=== PATIENT | female | born 1995 | race Caucasian/White ===

== ENCOUNTER 2018-02-27 16:55 | Outpatient (CLI) | payer MEDICAID, SELFPAY ==
[2018-02-27 17:12] VITALS: BMI 46.3
[2018-02-27 17:59] LABS: Hematocrit 37.3 % (37-47); Hemoglobin 12.7 g/dl (12.0-15.0); Mean Corpuscular Hgb 30.1 pg (27.0-32.0); Mean Corpuscular Volume 88.4 fL (81-99); Mean Platelet Vol. 11.7 fl (6.2-12.0); Platelet Count 193 K/mm3 (150-450); RBC Distribution Width CV 13.8 % (11.6-14.6); RBC Distribution Width SD 42.8 fl (35.1-43.9); Red Blood Count 4.22 M/mm3 (4.2-5.4); White Blood Count 14.3 K/mm3 (4.4-11.0)
[2018-02-27 18:00] LABS: Scan Indicated on CBC? Y/N NO
[2018-02-27 18:10] LABS: Prothrombin Time (Protime)PT. 12.7 SECONDS (11.7-14.9)
[2018-02-27 18:11] LABS: Partial Thromboplast Time 25.7 Seconds (24.1-36.2)
[2018-02-27 18:13] LABS: AST(SGOT) 16 U/L (15-37); Alanine Aminotransfer ALT/SGPT 31 U/L (13-56); Creatinine, Serum 0.69 mg/dL (0.55-1.02); EST Glomerular Filtration Rate 112 mL/min (>60); Est Glom Filt Rate - Afr Amer 136 mL/min (>60); Estimated Creatinine Clearance 110.43 ml/min; Protein, Urine (Random) 13.5 mg/dL (<11.9); Protein:Creat Ratio 300 mg/g CRE (0-200); Uric Acid 4.7 mg/dL (2.6-6.0)
--- NOTE | 2018-02-27 21:03 | OB.TRI.NOTE ---
- Problem List (1) Transient elevated blood pressure Status: Acute History of Present Illness Date of Service: 02/27/18 Was patient seen by the physician?: Yes Reason For Visit: ELEVATED BP Date of Service: 02/27/18 Final GEORGINA: 03/19/18 Final GEORGINA Source: US <20 weeks Gestational age: 37 Weeks and 1 Days History of Present Illness: Patient presented to office today for visit with Di Herrera CNM. Patient was noted to have initial elevated blood pressure of 152/90 in office. Subsequent blood pressures were all normotensive but decision was mutually made with collaborating physician Jaguar Luciano MD to evaluate via prolonged monitoring at hospital. Pre-eclampsia labs, urine P/C ratio and 24 hour urine to be drawn on this admission for screening. If in normal range, anticipate discharge to home. Allergies No Known Allergies Allergy (Verified 02/27/18 17:13) - Pertinent Past Medical History Pertinent Past Medical History: See [facility] Record Physical Exam Vitals: BPs mostly in 140/70s per nursing report, HR = 90-100s LFTs WNL, uric acid = 4.7, CBC = WNL Urine P/C ratio = 300 borderline high normal. Will order 24 hours urine for patient to collect and turn in the morning of Sunday AM visit General: Alert, Oriented x3, No apparent distress HEENT: Atraumatic, Normocephalic. Negative for: Thyromegaly, Lymphadenopathy Cardiovascular: Regular rate, Regular Rhythm Lungs: Clear to auscultation Abdomen: Soft, Non Tender, Gravid, Appropriate for Gestational Age Extremities:: No edema Neurological: Deep Tendon Reflexes 2+/4 and Symmetrical, Neuro grossly intact LABORATORY SECRETARY: Normal external genitalia. Negative for: Vulvar lesions Estimated gestational size: Appropriate for gestational size - deferred Presentation: Cephalic NST - FHR Rate Baby A Baseline: 150 Variability:: Moderate Accelerations:: 15 x 15 Decelerations:: None NST Reactive:: Yes, Appropriate for gestational age FHR Category:: Category I Uterine Activity:: None noted on tocometer Impression/Plan 22 y/o @ 37 weeks, Transient Episode of Elevate Blood Pressure P: 1) Patient remains asymptomatic, denies pre-eclampsia s/s at this time. As blood pressures remained normotensive and blood lab work WNL will discharge patient to home at this time. 2) RTC Kevin AM for BP check 3) 24 hour urine to be initiated tomorrow and finished by Sunday AM visit 4) Pre-eclampsia warning s/s reviewed. Yamilex HAMMOND
== END 2018-02-27 19:00 | disposition home or self-care (01) ==
LOC: WPOUT 17:07 → WP 17:07
PROVIDERS: Advanced Practice Midwife; Visit Provider Advanced Practice Midwife
DX: O26.893 Other specified pregnancy related conditions, third trimester (principal); R03.0 Elevated blood-pressure reading, without diagnosis of hypertension; Z3A.37 37 weeks gestation of pregnancy
CPT/HCPCS: 36415; 59025; 59050; 82565; 82570; 84156; 84450; 84460; 84550; 85027; 85610; 85730; 99218; G0378

== ENCOUNTER 2018-03-01 15:40 | Inpatient (IN) | payer MEDICAID, SELFPAY ==
[2018-03-01 16:15] VITALS: BMI 45.8
[2018-03-01] MEDS: Lactated Ringers 1,000 ML 50 ML IV (16:30)
--- NOTE | 2018-03-01 16:42 | PCM.HP.OB ---
History Date of Admission: 03/01/18 Final GEORGINA: 03/19/18 Final GEORGINA Source: US <20 weeks Gestational age: 37 Weeks and 3 Days History of this : This is a 22 year-old, G 1, P 0, at 37 weeks gestational age was seen in office for BP check- BPs found to be elevated [id number]. pt denies visual changes but states she does have some pain behind her eyes. Denies Epigastric or RUQ pain. pt Reports decreased FM. Pt had PRE E work up earlier this week- urine protein/creat ratio 300mg. Based on this information and BPs today I recommended to patient IOL for Preeclampsia without Severe features. Allergies nickel Adverse Reaction (Verified 03/01/18 16:15) Rash Home Medications: Home Medications Lamotrigine [Lamictal] 200 mg PO DAILY 02/27/18 Quetiapine Fumarate [Seroquel] 300 mg PO DAILY 02/27/18 Smoking Status: Current some day smoker Alcohol: None Number of Fetus(es): 1 Heart Tracin moderate variability with + accels, no decels. TOCO Analysis: irregular History Past Pregnancies: Past Pregnancies Delivery Date Name GA/Weeks Outcome Route Weight Infant Gender Labor Length Anesthesia Delivery Location Provider FOB Labs: Blood type O+, HEP B neg, HIV non reactive, GBS Positive, RPR NR, GCT 131. Expected Delivery Method: Spontaneous Vaginal Review of Systems Constitutional: Denies: Anorexia Eyes: Denies: Blurred vision HEENT: Denies: Difficulty Hearing, Difficulty Swallowing Cardiovascular: Denies: Chest Pain Gastrointestinal: Denies: Abdominal Pain Physical Exam General: Alert, Oriented x3 HEENT: Atraumatic Abdomen: Soft, Non Tender, Gravid Neurological: Cranial nerves II-XII grossly intact PERSONNEL ASSOCIATE: Normal external genitalia Estimated gestational size: Appropriate for gestational size Presentation: Cephalic Cervix Dilation (cm): 1 Station: -3 Effacement (%): 70 Assessment/Plan All Active Problems Transient elevated blood pressure (Acute) This is a 22 year-old, G 1, P0, at 37 weeks gestational age Elevated BPs and slightly elevated Urine spot prot/creat raito- PREECLAMPSIA without severe features 1) admit 2) monitor fhr/toco 3) apple/pitocin 4) GBS prophylaxis when in labor
--- NOTE | 2018-03-01 16:52 | HP.PCM_ITS ---
History Date of Admission: 03/01/18 Final GEORGINA: 03/19/18 Final GEORGINA Source: US <20 weeks Gestational age: 37 Weeks and 3 Days History of this : This is a 22 year-old, G 1, P 0, at 37 weeks gestational age was seen in office for BP check- BPs found to be elevated [id number]. pt denies visual changes but states she does have some pain behind her eyes. Denies Epigastric or RUQ pain. pt Reports decreased FM. Pt had PRE E work up earlier this week- urine protein/creat ratio 300mg. Based on this information and BPs today I recommended to patient IOL for Preeclampsia without Severe features. Allergies nickel Adverse Reaction (Verified 03/01/18 16:15) Rash Home Medications: Home Medications Lamotrigine [Lamictal] 200 mg PO DAILY 02/27/18 Quetiapine Fumarate [Seroquel] 300 mg PO DAILY 02/27/18 Smoking Status: Current some day smoker Alcohol: None Number of Fetus(es): 1 Heart Tracin moderate variability with + accels, no decels. TOCO Analysis: irregular History Past Pregnancies: Past Pregnancies Delivery Date Name GA/Weeks Outcome Route Weight Infant Gender Labor Length Anesthesia Delivery Location Provider FOB Labs: Blood type O+, HEP B neg, HIV non reactive, GBS Positive, RPR NR, GCT 131. Expected Delivery Method: Spontaneous Vaginal Review of Systems Constitutional: Denies: Anorexia Eyes: Denies: Blurred vision HEENT: Denies: Difficulty Hearing, Difficulty Swallowing Cardiovascular: Denies: Chest Pain Gastrointestinal: Denies: Abdominal Pain Physical Exam General: Alert, Oriented x3 HEENT: Atraumatic Abdomen: Soft, Non Tender, Gravid Neurological: Cranial nerves II-XII grossly intact HEALTHCARE CONSULTANT: Normal external genitalia Estimated gestational size: Appropriate for gestational size Presentation: Cephalic Cervix Dilation (cm): 1 Station: -3 Effacement (%): 70 Assessment/Plan All Active Problems Transient elevated blood pressure (Acute) This is a 22 year-old, G 1, P0, at 37 weeks gestational age Elevated BPs and slightly elevated Urine spot prot/creat raito- PREECLAMPSIA without severe features 1) admit 2) monitor fhr/toco 3) apple/pitocin 4) GBS prophylaxis when in labor
[2018-03-01] MEDS: 0.9% Normal Saline 100 ML IV.SOLN. 250 ML INTRA-UTER (17:00)
[2018-03-01 17:03] LABS: Hematocrit 39.2 % (37-47); Hemoglobin 13.5 g/dl (12.0-15.0); Mean Corp Hgb Conc 34.4 g/gl (32-36); Mean Corpuscular Hgb 29.8 pg (27.0-32.0); Mean Corpuscular Volume 86.5 fL (81-99); Platelet Count 201 K/mm3 (150-450); RBC Distribution Width CV 13.6 % (11.6-14.6); RBC Distribution Width SD 41.6 fl (35.1-43.9); Red Blood Count 4.53 M/mm3 (4.2-5.4); White Blood Count 12.8 K/mm3 (4.4-11.0)
[2018-03-01 17:05] LABS: Scan Indicated on CBC? Y/N NO
[2018-03-01] MEDS: Oxytocin 30 units/NS 500 ml 30 UNITS/500 ML IV.SOLN IV (17:10)
[2018-03-01 17:12] LABS: Prothrombin Time (Protime)PT. 12.8 SECONDS (11.7-14.9)
[2018-03-01 17:28] LABS: ALB/GLOB Ratio 0.7 RATIO (0.9-2.4); AST(SGOT) 18 U/L (15-37); Alanine Aminotransfer ALT/SGPT 25 U/L (13-56); Albumin, Serum 2.7 g/dL (3.2-5.0); Alkaline Phosphatase 143 U/L (45-117); Anion Gap 8 (5-15); BUN 9 mg/dL (7-18); BUN/Creat Ratio 14.2 RATIO (10-20); Calcium,Total 9.2 mg/dL (8.5-10.1); Chloride 109 mmol/L (98-107); Creatinine, Serum 0.63 mg/dL (0.55-1.02); EST Glomerular Filtration Rate 124 mL/min (>60); Est Glom Filt Rate - Afr Amer 151 mL/min (>60); Estimated Creatinine Clearance 120.95 ml/min; Globulin 4.1 g/dL (2.2-4.2); Glucose 84 mg/dL (74-106); Protein, Total 6.8 g/dL (6.4-8.2); Sodium Level 138 mmol/L (136-145)
[2018-03-01 17:37] LABS: Creat.Clear Total Volume 1775 mL; Creatinine Clearance 191 ml/min (100-200); Creatinine Serum Creat 0.6 mg/dL (0.6-1.0); Creatinine Urine 97.7 mg/dL (NO RANGE EST.); EST Glomerular Filtration Rate 125 mL/min (>60); Est Glom Filt Rate - Afr Amer 152 mL/min (>60)
[2018-03-01] MEDS: Acetaminophen 325 MG Tablet PO (19:45)
[2018-03-01 20:28] LABS: 24 Hour Urine Protein 445.5 mg/24HR (<150 MG/24HR); 24HR. UA Prot. Total Volume 1775 mL; Urine Protein (24 Hour) 25.1 mg/dL (<11.9)
[2018-03-01] MEDS: QUEtiapine 100 MG Tablet 300 MG PO (22:39)
[2018-03-02] VITALS (12 sets, daily range): BP systolic 111–132; BP diastolic 54–77; PULSE 85–114; RESP 16–20; TEMP 36.3–37; O2SAT 18–99
[2018-03-02] MEDS: Lactated Ringers 1,000 ML 50 ML IV ×4 (00:40→13:35)
[2018-03-02] MEDS: Acetaminophen 325 MG Tablet PO (04:32)
--- NOTE | 2018-03-02 07:33 | PCM.PN.BLA ---
Progress Note pt seen at bedside, doing well. Pitocin at 16mu, AROM performed clear fluid- IUPC and IFM placed. Pt has a very narrow Pelvis, prominent pubic arch. 4-5cm/80/-3. will continue pitocin. Epidural for pain.
--- NOTE | 2018-03-02 07:36 | PN_ITS ---
Progress Note pt seen at bedside, doing well. Pitocin at 16mu, AROM performed clear fluid- IUPC and IFM placed. Pt has a very narrow Pelvis, prominent pubic arch. 4-5cm/80 /-3. will continue pitocin. Epidural for pain.
[2018-03-02] MEDS: fentaNYL-bupivacaine (epidural) 100 ML BAG EPIDURAL (08:10)
[2018-03-02] MEDS: lamoTRIgine 100 MG Tablet 200 MG PO (10:49)
--- NOTE | 2018-03-02 12:24 | PCM.PN.BLA ---
Progress Note pt seen at bedside, comfortable with epidural in place. VE: /-80/-3 with caput noted, large amt of clear amniotic fluid expelled on exam. pitocin was turned off earlier due to minimal variability and late decelerations- will attempt to restart pitocin. FHR currently category 1. Will recheck patient in approx 2 hours
[2018-03-02] MEDS: Sodium Citrate/Citric Acid 30 ML UDC PO (15:45)
[2018-03-02] MEDS: Oxytocin 30 units/NS 500 ml 30 UNITS/500 ML IV.SOLN 167 UNITS IV (16:36)
--- NOTE | 2018-03-02 17:19 | OP.PCM_ITS ---
Delivery Classification: ARGELIA Final GEORGINA: 03/19/18 Gestational age: 37 Weeks and 4 Days Indications: Failed induction, Arrest of dilation at 5cm, intolerance to pitocin. Indications for : Failure to Progress, Nonreassuring Status, - - failed induction Description of Procedure: Surgeon: Dr. Idania Rey Safekeeping Clerk: JONH Guajardo Preoperative diagnosis: Preeclampsia without severe features, Failed Induction, arrest of dilation at 5cm, intolerance to pitocin - Postoperative diagnosis: same Findings: LIve female infant born 1635 with apgars 8/9, body cord x 1. weight [id number] Anesthesia: Epidural Complications: None Estimated blood loss: 800 Implantable devices: None Drains: apple Procedure performed: Primary Low Transverse section Indications: Pt was induced for Preeclampsia - had cervical apple (came out at approx 9:30pm 03/01/18) and was on pitocin for approximately 24hr, progressed to 5cm for which she remained for 0050 hrs. pitocin had to be turned off multiple times due to category 2 tracing with Late decelerations and minimal variability. pt and were counseled on primary cs including risks of bleeding, injury to pelvic structures, infection . Operative note: After informed consent was obtained the patient was taken the operating room. She was then placed in the supine position. She was prepped and draped in the normal sterile fashion. Anesthesia was found to be adequate. At this time a Pfannenstiel skin incision was made with a knife was carried down to the underlying layer of the fascia. The fascial incision was then extended laterally using curved Guerrero scissor. Tensions was then turned to the superior aspect of the fascial edge was grasped with 2 straight Josiah clamps tented up and the rectus muscle dissected off sharply using curved Guerrero scissor. Attention was then turned to the inferior aspect where again Josiah clamps were placed in the rectus muscles were tented up and the fascia was dissected off sharply using the curved Guerrero scissor. Rectus muscles were then in the midline bluntly and peritoneum was entered bluntly. Gentle opposing traction was placed. At this time the vesicouterine peritoneum was identified. bladder flap created with meteznbaum scissor and taken down digitally. Scalpel was used to make a uterine incision in a low transverse fashion. The uterus was then entered bluntly gentle opposing traction was placed to extend this incision. fluid was clear. Infant's head was brought to the uterine incision was delivered atraumatically. delayed cord calping performed x approx 60sec- then it was clamped and cut was handed to the waiting nursery team. The Placenta was removed from the uterus. The uterus remained in the cavity. Carlos O retractor used for visualization. The uterus was cleared of all clots and debris using a lap. At this time the uterine incision was reapproximated using #1 Vicryl in a running locked fashion. Hemostasis was appreciated. Posterior cul-de-sac was then cleared of all clots and debris. Gutters were cleared of all clots and debris. Uterine incision was reevaluated and noted to be of excellent hemostasis. At this time the peritoneum was grasped with Kellys reapproximated using #2 Vicryl suture in a running fashion. Muscles then reapproximated using #2 Vicryl in a interrupted mattress suture fashion. Fascia was then reapproximated using #1 PDS in a running fashion. Subcu layer was reapproximated with #2 0 plain gut suture in an interrupted fashion. Subcu layer was closed using 4-0 vicryl on a Satya needle in a subcu fashion. Dry sterile dressing was applied. Instrument lap needle count correct ?2. Anticipated normal postoperative course Amniotic Membrane Rupture Type: Artificial Amniotic Fluid Description: Clear Placenta Disposition: [facility] Drain: Apple to straight drain Cord Entanglement: - - body cord, losse x 1 Nuchal Cord Compression: With compression Cord Vessel Description: 3 Vessels Esitmated Blood Loss (ml): 800 Gender: Female (1 minute): 8 (5 minute): 9 Delayed cord clamping: Yes Pre-op Antibiotic Given: - - ancef 3g and Zithromax 500mg iv Pt instructed on risks of surgery: Bleeding, Anesthesia Risks, Infection, Injury to surrounding structure(s) including bowel and bladder Complications: None - Admit VTE Documentation VTE Present on Admission: Yes VTE Mechan Device Prophylaxis: SCD's VTE Pharm Prophylaxis ordered?: Yes
[2018-03-02] MEDS: Acetaminophen 500 MG Tablet 1000 MG PO (21:09)
[2018-03-03] VITALS (12 sets, daily range): BP systolic 110–137; BP diastolic 55–81; PULSE 74–102; RESP 16–18; TEMP 36.1–36.7; O2SAT 95–98
--- NOTE | 2018-03-03 00:09 | NURSING ---
report given to Tamiko
[2018-03-03] MEDS: Lactated Ringers 1,000 ML 100 ML IV (01:26)
[2018-03-03] MEDS: 0.9% Saline Lock 10 ML Syringe IV (03:35)
[2018-03-03] MEDS: Ketorolac 30 MG/ML Syringe IV ×3 (03:35→10:39)
[2018-03-03] MEDS: QUEtiapine 100 MG Tablet 200 MG PO ×2 (03:35→21:27)
[2018-03-03] MEDS: Enoxaparin 40 MG/0.4 ML Syringe SC (06:05)
--- NOTE | 2018-03-03 09:00 | PN.OBGYN_ITS ---
Patient Problems: Active and Suspected Problems (Last Updated 03/01/18 @ 16:43 by Idania Mackenzie MD) Bipolar 2 disorder (Acute) Subjective: pt seen at bedside,dong well. pt reports good pain control. lochia mild. breast feeding. passing flatus. denies CP, SOB, dizziness. - Physical Exam General: Alert, Oriented x3 Abdomen: Soft, Non Tender, Non-Distended, Passing Flatus, - - fundus firm. dressing dry and intact Extremities: No Calf Tenderness Vital Signs Temp Pulse Resp BP Pulse Ox 97 F L 80 16 110/60 96 03/03/18 03:15 03/03/18 06:34 03/03/18 06:34 03/03/18 03:15 03/03/18 06:34 Oxygen Flow Rate (L/min) 2 Oxygen Delivery Method Nasal Cannula Weight: 121.2 kg Body Mass Index (BMI) 45.8 Intake and Output for Last 24 Hours 03/01/18 03/02/18 03/03/18 23:59 23:59 23:59 Intake Total 9766 / 9766 830 / 830 Output Total 1600 / 1600 400 / 400 Balance 8166 / 8166 430 / 430 Medical Necessity - Tobacco Use Smoking Status: Current some day smoker Assessment/Plan All Active Problems (Last Updated 03/01/18 @ 16:43 by Idania Rey MD) Transient elevated blood pressure (Acute) Bipolar 2 disorder (Acute) POD#1, doing well 1) preeclampsia- BP stable 2) pain mgmt 3) dc apple 4) ambulation
[2018-03-03] MEDS: lamoTRIgine 100 MG Tablet 200 MG PO (10:40)
[2018-03-03 15:37] LABS: Hematocrit 29.2 % (37-47); Hemoglobin 9.6 g/dl (12.0-15.0); Mean Corp Hgb Conc 32.9 g/gl (32-36); Mean Corpuscular Hgb 29.1 pg (27.0-32.0); Mean Corpuscular Volume 88.5 fL (81-99); Mean Platelet Vol. 11.4 fl (6.2-12.0); Platelet Count 145 K/mm3 (150-450); RBC Distribution Width CV 13.9 % (11.6-14.6); RBC Distribution Width SD 44.9 fl (35.1-43.9); White Blood Count 11.9 K/mm3 (4.4-11.0)
[2018-03-03 15:46] LABS: Scan Indicated on CBC? Y/N NO
[2018-03-03] MEDS: oxyCODONE 5 MG Tablet PO ×2 (16:37→21:26)
[2018-03-03] MEDS: Ibuprofen 600 MG Tablet PO ×2 (16:38→23:58)
--- NOTE | 2018-03-03 19:03 | DCINST_ITS ---
Discharge Diet: No Restrictions Discharge Activity: Return to Normal Activity, May Not Drive - for 2 weeks, May not drive while taking narcotic pain medications., May Shower, May Take a Tub Bath - in 7 days. May resume sexual activity in: 4-6 weeks Lifting Restrictions: 20 pounds Additional Activity Instructions:: Nothing in the vagina for 4-6 weeks. You may return to work/school in 6 weeks. Call your doctor if your incision/area has: Continuous Slow Oozing, Sudden Increased Bleeding, Increased Pain/ Swelling, Increased Redness, Foul Smelling Discharge Call your doctor if you observe: Fever of 101 or Higher, Using more than one pad per hour - for 2 hours Suture Line Care: Avoid Pulling/Pushing, Avoid Pinching/Bending Cleanse incision/area with: Keep Dressing Clean & Dry Additional Instructions: If you experience any of the following, contact your healthcare provider. * Bleeding that soaks a pad every hour for 2 hours * Fever 100.4 or higher * Unrelieved incision or abdominal pain * Swelling, redness, discharge or bleeding from your incision or episiotomy site * Your incision begins to separate * Problems urinating (including inability to urinate or burning while urinating) . * Visual changes * Severe headache * Flu-like symptoms * Pain or redness in one of both of your breasts * Pain, warmth, tenderness or swelling in your legs, especially the calf area * Frequent nausea and vomiting * Symptoms of depression or anxiety If you experience any of the following, call 911 or go to the nearest Emergency Room. * Chest pain * Problems breathing * Seizure activity * Partial or complete paralysis of a body part, slurred speech, weakness or drooping of the face, or a sudden inability to walk or hold your balance Allergies/Adverse Reactions: Allergies nickel Adverse Reaction (Verified 03/01/18 16:15) Rash Medications to take at Discharge Lamotrigine [Lamictal] 200 mg PO DAILY 02/27/18 Quetiapine Fumarate [Seroquel] 300 mg PO DAILY 02/27/18 Ibuprofen [Motrin] 800 mg PO Q8H PRN PRN #30 tab 03/03/18 Lamotrigine [Lamictal] 200 mg PO DAILY tablet 03/03/18 Oxycodone HCl/Acetaminophen [Percocet 5/325] 1 tablet PO Q6H PRN PRN 7 Days #28 tablet 03/03/18 Quetiapine Fumarate [Seroquel] 200 mg PO QHS tablet 03/03/18 Senna/Docusate Sodium [Senokot-S] 1 tab PO DAILY PRN #30 tab 03/03/18 SimETHICONE [Mylicon] 80 mg PO PCHS PRN #30 tab 03/03/18 The following prescriptions were given: Oxycodone HCl/Acetaminophen [Percocet 5/325] 1 tablet PO Q6H PRN PRN 7 Days #28 tablet PRN Reason: Pain Ibuprofen [Motrin] 800 mg PO Q8H PRN PRN #30 tab PRN Reason: Pain Senna/Docusate Sodium [Senokot-S] 1 tab PO DAILY PRN #30 tab PRN Reason: Constipation SimETHICONE [Mylicon] 80 mg PO PCHS PRN #30 tab PRN Reason: Indigestion/stomach pain Follow-Up: Call to make an appointment with your doctor for an incision check in 1-2 weeks. You will also need a 6 week post- follow up appointment. Please Follow Up With: Idania Rey MD - Call to make an appointment for an incision check in 1-2 [phone] When: You will need a post- check in 6 weeks. Primary Care Physician: Care Physician,No Primary [Primary Care Provider] -
[2018-03-03] MEDS: Senna/Docusate Sodium 1 Tablet PO (21:26)
[2018-03-04] VITALS: BP 137/67; PULSE 120; RESP 16; TEMP 36.7; O2SAT 98
[2018-03-04] MEDS: Enoxaparin 40 MG/0.4 ML Syringe SC (06:26)
[2018-03-04] MEDS: Ibuprofen 600 MG Tablet PO ×2 (06:26→22:48)
[2018-03-04] MEDS: oxyCODONE 5 MG Tablet PO ×2 (06:27→16:26)
[2018-03-04 08:30] VITALS: BP 140/81; PULSE 105; RESP 18; TEMP 36.4; O2SAT 97
--- NOTE | 2018-03-04 09:12 | PN.OBGYN_ITS ---
Patient Problems: Active and Suspected Problems (Last Updated 03/01/18 @ 16:43 by Idania Mackenzie MD) Preeclampsia (Acute) Bipolar 2 disorder (Acute) Subjective: Doing well per patient and nursing staff. Ambulating and taking PO without difficulty. Voiding and passing flatus. Denies headache, visual changes, chest pain, shortness of breath, leg pain, increased vaginal bleeding or clots. Pain controlled by Oxycodone. Pumping and bottle feeding. - Physical Exam General: Alert, Oriented x3, Cooperative HEENT: Atraumatic, PERRLA, Normocephalic Lungs: Clear to auscultation, Normal air movement, No rhonchi, No wheeze Cardiovascular: Regular rate, Regular Rhythm, No murmurs Abdomen: Bowel Sounds Present, Soft, - - Incision covered with dressing. Clean, dry and intact. Bowel signs present Extremities: No edema Musculoskeletal: No Tenderness to Palpation of Joints or Extremities Neurological: Cranial nerves II-XII grossly intact, Deep Tendon Reflexes 2+/4 and Symmetrical, - - Casey's negative, no clonus Psych/Mental Status: Normal Affect, Appropriate Vital Signs Temp Pulse Resp BP Pulse Ox 98.1 F 120 H 16 137/67 H 98 03/04/18 00:00 03/04/18 00:00 03/04/18 00:00 03/04/18 00:00 03/04/18 00:00 Oxygen Flow Rate (L/min) 2 Oxygen Delivery Method Room Air Weight: 267 lb 3.204 oz Body Mass Index (BMI) 45.8 Intake and Output for Last 24 Hours 03/02/18 03/03/18 03/04/18 23:59 23:59 23:59 Intake Total 9766 / 9766 830 / 830 Output Total 1600 / 1600 1700 / 1700 Balance 8166 / 8166 -870 / -870 Laboratory Tests Past 24 Hrs 03/03/18 15:05 WBC 11.9 H RBC 3.30 L Hgb 9.6 L Hct 29.2 L MCV 88.5 MCH 29.1 MCHC 32.9 RDW 13.9 RDW Differential 44.9 H Plt Count 145 L MPV 11.4 Medical Necessity - Tobacco Use Smoking Status: Current some day smoker Assessment/Plan All Active Problems (Last Updated 03/01/18 @ 16:43 by Idania Rey MD) Preeclampsia (Acute) Transient elevated blood pressure (Acute) Bipolar 2 disorder (Acute) A: POD #2 Primary Section Pre-Eclampsia P: 1) Planning D/C home tomorrow 2) BP elevated today 140/81, will continue to monitor. 3) Lovenox for prophylaxis.
[2018-03-04] MEDS: Senna/Docusate Sodium 1 Tablet PO (10:35)
[2018-03-04] MEDS: lamoTRIgine 100 MG Tablet 200 MG PO (10:35)
[2018-03-04 14:10] VITALS: BP 158/92; PULSE 110; RESP 18; TEMP 36.8; O2SAT 110
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
[2018-03-04] MEDS: Labetalol 100 MG Tablet PO (16:27)
[2018-03-04 20:08] VITALS: BP 131/62; PULSE 110; RESP 18; TEMP 36.7; O2SAT 97
[2018-03-04] MEDS: QUEtiapine 100 MG Tablet 200 MG PO (22:49)
[2018-03-05 04:00] VITALS: BP 133/77; PULSE 94; RESP 18; TEMP 36.6
[2018-03-05 05:00] VITALS: BP 127/68
[2018-03-05] MEDS: Labetalol 100 MG Tablet PO (05:09)
[2018-03-05] MEDS: Enoxaparin 40 MG/0.4 ML Syringe SC (06:28)
[2018-03-05 08:45] VITALS: BP 152/87; PULSE 103; RESP 20; TEMP 36.2; O2SAT 99
--- NOTE | 2018-03-05 08:50 | PN.OBGYN_ITS ---
Patient Problems: Active and Suspected Problems (Last Updated 03/01/18 @ 16:43 by Idania Mackenzie MD) Preeclampsia (Acute) Bipolar 2 disorder (Acute) Subjective: Doing well per patient and nursing staff. Ambulating and taking PO without difficulty. Voiding and passing flatus. Pain controlled by oxycodone. Denies headache, visual changes, chest pain, shortness of breath, increased pain, increased vaginal bleeding or clots. Having difficulty with baby latching, pumping and bottle feeding breastmilk and formula. D/C home today. - Physical Exam General: Alert, Oriented x3, Cooperative HEENT: Atraumatic Lungs: Clear to auscultation, Normal air movement, No rhonchi, No wheeze Cardiovascular: Regular rate, Regular Rhythm, No murmurs Abdomen: Bowel Sounds Present, Soft, Non Tender, Passing Flatus, Obese, - - Dressing clean, dry, and intact. Extremities: - - +1 BLE. Musculoskeletal: No Tenderness to Palpation of Joints or Extremities Neurological: Deep Tendon Reflexes 2+/4 and Symmetrical, - - Clonus negative Psych/Mental Status: Normal Affect, Appropriate Vital Signs Temp Pulse Resp BP Pulse Ox 97.9 F 94 18 127/68 H 97 03/05/18 04:00 03/05/18 04:00 03/05/18 04:00 03/05/18 05:00 03/04/18 20:08 Oxygen Flow Rate (L/min) 2 Oxygen Delivery Method Room Air Weight: 267 lb 3.204 oz Body Mass Index (BMI) 45.8 Intake and Output for Last 24 Hours 03/03/18 03/04/18 03/05/18 23:59 23:59 23:59 Intake Total 830 / 830 Output Total 1700 / 1700 Balance -870 / -870 Medical Necessity - Tobacco Use Smoking Status: Current some day smoker Assessment/Plan All Active Problems (Last Updated 03/01/18 @ 16:43 by Idania Rey MD) Preeclampsia (Acute) Transient elevated blood pressure (Acute) Bipolar 2 disorder (Acute) A: POD #2 Section Pre-Eclampsia P: 1) Discharge and instructions given. Follow up in 3 days for BP check, 6 weeks for visit. 2) Reviewed Pre-e warning signs. Will continue Labetalol 100mg PO BID. Co- management of care with and consulted for home going medications. 3) D/C Lovenox 4) Will remove dressing at follow up visit.
--- NOTE | 2018-03-05 08:52 | DS.PCM_ITS ---
Discharge Date and Diagnosis - Problem List Patient Problems: Active and Suspected Problems (Last Updated 03/01/18 @ 16:43 by Idania Mackenzie MD) Preeclampsia (Acute) Bipolar 2 disorder (Acute) Date of Admission: 03/01/18 Date of Discharge: 03/05/18 - Primary Discharge Diagnosis Active and Suspected Problems (Last Updated 03/01/18 @ 16:43 by Idania Mackenzie MD) Preeclampsia (Acute) Bipolar 2 disorder (Acute) Section Hospital Course and Treatment Consultations 03/01/18 15:58 Consult: Anesthesia Routine Comment: Reason For Exam: STD Summary of Care Provided: The patient is a 22 year old F [] Discharge Diet: No Restrictions Discharge Activity: Return to Normal Activity, May Not Drive - for 2 weeks, May not drive while taking narcotic pain medications., May Shower, May Take a Tub Bath - in 7 days. May resume sexual activity in: 4-6 weeks Weight Bearing Status: Weight bearing as tolerated Additional Activity Instructions:: Nothing in the vagina for 4-6 weeks. You may return to work/school in 6 weeks. Call your doctor if your incision/area has: Continuous Slow Oozing, Sudden Increased Bleeding, Increased Pain/ Swelling, Increased Redness, Foul Smelling Discharge Call your doctor if you observe: Fever of 101 or Higher, Using more than one pad per hour - for 2 hours Suture Line Care: Avoid Pulling/Pushing, Avoid Pinching/Bending Cleanse incision/area with: Keep Dressing Clean & Dry Home Medications: Medications to take at Discharge Lamotrigine [Lamictal] 200 mg PO DAILY 02/27/18 Quetiapine Fumarate [Seroquel] 300 mg PO DAILY 02/27/18 Ibuprofen [Motrin] 800 mg PO Q8H PRN PRN #30 tab 03/03/18 Lamotrigine [Lamictal] 200 mg PO DAILY tablet 03/03/18 Oxycodone HCl/Acetaminophen [Percocet 5/325] 1 tablet PO Q6H PRN PRN 7 Days #28 tablet 03/03/18 Quetiapine Fumarate [Seroquel] 200 mg PO QHS tablet 03/03/18 Senna/Docusate Sodium [Senokot-S] 1 tab PO DAILY PRN #30 tab 03/03/18 SimETHICONE [Mylicon] 80 mg PO PCHS PRN #30 tab 03/03/18 Following Prescrptions Were Given to Patient: Oxycodone HCl/Acetaminophen [Percocet 5/325] 1 tablet PO Q6H PRN PRN 7 Days #28 tablet PRN Reason: Pain Ibuprofen [Motrin] 800 mg PO Q8H PRN PRN #30 tab PRN Reason: Pain Senna/Docusate Sodium [Senokot-S] 1 tab PO DAILY PRN #30 tab PRN Reason: Constipation SimETHICONE [Mylicon] 80 mg PO PCHS PRN #30 tab PRN Reason: Indigestion/stomach pain Primary Care Physician: Care Physician,No Primary [Primary Care Provider] - Please Follow Up With: Idania Rey MD - Call to make an appointment for an incision check in 1-2 [phone] When: You will need a post- check in 6 weeks. Medical Necessity - Tobacco Use Smoking Status: Current some day smoker Meaningful Use Info Meaningful Use Diagnoses (Choose all that apply): None applicable
[2018-03-05] MEDS: lamoTRIgine 100 MG Tablet 200 MG PO (10:02)
[2018-03-05] MEDS: Senna/Docusate Sodium 1 Tablet PO (10:02)
[2018-03-05 10:10] VITALS: BP 144/89; PULSE 109; RESP 20
== END 2018-03-05 11:50 | disposition home or self-care (01) | DRG 371 ==
LOC: WP 15:47
PROVIDERS: Advanced Practice Midwife; Admitting Provider Obstetrics & Gynecology; Visit Provider Obstetrics & Gynecology
DX: O14.94 Unspecified pre-eclampsia, complicating childbirth (principal); Z3A.37 37 weeks gestation of pregnancy; Z37.1 Single stillbirth; O76 Abnormality in fetal heart rate and rhythm complicating labor and delivery; O61.0 Failed medical induction of labor; O99.214 Obesity complicating childbirth; E66.01 Morbid (severe) obesity due to excess calories; Z68.42 Body mass index [BMI] 45.0-49.9, adult; O99.334 Smoking (tobacco) complicating childbirth; F17.200 Nicotine dependence, unspecified, uncomplicated; O99.344 Other mental disorders complicating childbirth; Z79.899 Other long term (current) drug therapy
CPT/HCPCS: 36415; 59025; 59050; 80053; 82565; 82570; 82575; 84156; 84450; 84460; 84550; 85027; 85610; 85730; 86850; 86900; 99218; J7050; J7120; A4216; G0378; J2405